=== PATIENT | female | born 1950 | race Caucasian/White ===

== ENCOUNTER 2017-11-04 07:30 | Day surgery (SDC) | payer MEDICARE, OTHER ==
[~2017-11-04] VITALS: Ht 165.1 cm; Wt 57.2 kg
[~2017-11-04 07:30] MED LIST: Atenolol-Chlor1 EAC1; EXEM25; MIRT15ST; Macrodantin50 MG; SHINGRIX V50 MCG/0.5; TRAM50
[2017-11-04] MEDS ORDERED: NITR100 PO (08:19)
== END 2017-11-04 09:30 | disposition home or self-care (01) ==
LOC: ORSCSDS 07:30
PROVIDERS: Ophthalmology
PROC: 08RK3JZ Replacement of Left Lens with Synthetic Substitute, Percutaneous Approach (ICD-10-PCS; principal; 2017-11-04 09:30)
DX: H25.12 Age-related nuclear cataract, left eye (principal); I10 Essential (primary) hypertension; Z79.899 Other long term (current) drug therapy; Z87.891 Personal history of nicotine dependence
CPT/HCPCS: J2250; J3010; J3301; J7040; V2632

== ENCOUNTER 2017-12-16 06:14 | Day surgery (SDC) | payer MEDICARE, OTHER ==
[~2017-12-16] VITALS: Ht 165.1 cm; Wt 57.0 kg
[~2017-12-16 06:14] MED LIST changes: +NITR100 PO
== END 2017-12-16 07:53 | disposition home or self-care (01) ==
LOC: ORSCSDS 06:14
PROVIDERS: Ophthalmology
PROC: 08RJ3JZ Replacement of Right Lens with Synthetic Substitute, Percutaneous Approach (ICD-10-PCS; principal; 2017-12-16 07:30)
DX: H25.11 Age-related nuclear cataract, right eye (principal); I10 Essential (primary) hypertension; I25.10 Atherosclerotic heart disease of native coronary artery without angina pectoris; Z87.891 Personal history of nicotine dependence; Z79.899 Other long term (current) drug therapy
CPT/HCPCS: J2250; J3010; J3301; J7040; V2632

== ENCOUNTER → 2017-12-17 | Outpatient (CLI) | payer MEDICARE, OTHER | END | disposition home or self-care (01) | LOC: LAB SHORT 13:41 → LAB 13:41 | DX: N39.0 Urinary tract infection, site not specified (principal) | CPT/HCPCS: 87086 ==

== ENCOUNTER 2018-09-24 08:33 | Day surgery (SDC) | payer MEDICARE, OTHER ==
[~2018-09-24] VITALS: Ht 165.1 cm; Wt 56.5 kg
[~2018-09-24 08:33] MED LIST changes: +ATECHL PO; +EXEM25 PO; +MIRT15 PO; +TRAM50 PO
--- NOTE | 2018-09-24 10:17 | NUR ---
09/24/18 1017 Stephen Chery IV IN LEFT HAND NOTED TO BE INFILTRATED. NEW IV ESTABLISHED IN LEFT AC WITHOUT DIFFICULTY.
== END 2018-09-24 11:54 | disposition home or self-care (01) ==
LOC: ORSCSDS 08:33
PROVIDERS: Podiatrist Foot & Ankle Surgery
PROC: 0SGM04Z Fusion of Right Metatarsal-Phalangeal Joint with Internal Fixation Device, Open Approach (ICD-10-PCS; principal; 2018-09-24 09:45)
DX: M20.11 Hallux valgus (acquired), right foot (principal); M20.5X1 Other deformities of toe(s) (acquired), right foot; I10 Essential (primary) hypertension; F17.210 Nicotine dependence, cigarettes, uncomplicated; Z79.899 Other long term (current) drug therapy
CPT/HCPCS: C1713; C1769; J0690; J1100; J2250; J2405; J3010; J7120

== ENCOUNTER → 2018-10-19 | Outpatient (CLI) | payer MEDICARE, OTHER | END | disposition home or self-care (01) | LOC: LAB 13:20 → LAB SHORT 13:20 | DX: N39.0 Urinary tract infection, site not specified (principal) | CPT/HCPCS: 87086 ==

== ENCOUNTER 2019-01-07 11:54 | Day surgery (SDC) | payer MEDICARE, OTHER ==
[~2019-01-07] VITALS: Ht 162.6 cm; Wt 55.6 kg
[2019-01-07] MEDS ORDERED: NITR100CA (13:34)
== END 2019-01-07 17:40 | disposition home or self-care (01) ==
LOC: ORSCSDS 11:54
PROVIDERS: Orthopaedic Surgery
PROC: 0PS904Z Reposition Right Clavicle with Internal Fixation Device, Open Approach (ICD-10-PCS; principal; 2019-01-07 13:00)
DX: S42.021K Displaced fracture of shaft of right clavicle, subsequent encounter for fracture with nonunion (principal); I10 Essential (primary) hypertension; Z87.891 Personal history of nicotine dependence; Z79.899 Other long term (current) drug therapy
CPT/HCPCS: C1713; J0690; J1100; J2250; J2405; J2704; J3010

== ENCOUNTER → 2019-03-16 | Outpatient (CLI) | payer MEDICARE, OTHER ==
[~2019-03-16] MED LIST changes: +NITR100CA
== END | disposition home or self-care (01) ==
LOC: LAB 11:50 → LAB SHORT 11:50
DX: R30.0 Dysuria (principal)
CPT/HCPCS: 87086

== ENCOUNTER → 2019-04-20 | Outpatient (CLI) | payer MEDICARE, OTHER ==
[2019-04-20 20:11] LABS: BASOPHILS ABSOLUTE AUTO 0.01 K/mm3 (0.00-0.23); BASOPHILS PERCENT AUTO 0 % (0-2); EOSINOPHILS ABSOLUTE AUTO 0.05 K/mm3 (0.00-0.68); EOSINOPHILS PERCENT AUTO 1 % (0-6); Hematocrit 42.1 % (33.0-51.0); Hemoglobin 13.6 g/dL (11.5-16.0); IMMATURE GRAN ABSOLUTE AUTO 0.01 K/mm3 (0.00-0.10); IMMATURE GRAN PERCENT AUTO 0 % (0-1); LYMPHOCYTES ABSOLUTE AUTO 1.17 K/mm3 (0.84-5.20); LYMPHOCYTES PERCENT AUTO 33 % (21-46); MONOCYTES ABSOLUTE AUTO 0.57 K/mm3 (0.16-1.47); MONOCYTES PERCENT AUTO 16 % (4-13); Mean Corpuscular HGB 33.3 pg (26.0-34.0); Mean Corpuscular HGB Conc 32.3 g/dL (31.5-36.5); Mean Corpuscular Volume 103 fL (80-100); Mean Platelet Volume 11.2 fL (9.1-12.4); NEUTROPHILS ABSOLUTE AUTO 1.78 K/mm3 (1.96-9.15); NEUTROPHILS PERCENT AUTO 50 % (41-73); Platelet Count 231 K/mm3 (150-400); RDW Coefficient Variation 14.3 % (11.7-14.2); RDW Standard Deviation 54.7 fL (35.1-46.3); Red Blood Cell Count 4.09 M/mm3 (3.80-5.20); White Blood Cell Count 3.59 K/mm3 (4.00-11.30)
[2019-04-20 20:28] LABS: Albumin, Blood 4.3 g/dL (3.4-5.0); Albumin/Globulin Ratio 1.2 (0.8-1.8); Bilirubin, Total 0.8 mg/dL (0.1-1.0); Calcium, Blood 10.3 mg/dL (8.5-10.1); Creatinine, Blood 1.12 mg/dL (0.40-1.00); Globulin, Blood 3.6 g/dL (2.2-4.0); Potassium, Blood 3.1 mmol/L (3.5-5.5); Total Protein, Blood 7.9 g/dL (6.4-8.2)
== END | disposition home or self-care (01) ==
LOC: LAB SHORT 19:21 → LAB 19:21
PROVIDERS: Hospitalist
DX: R10.11 Right upper quadrant pain (principal); R30.0 Dysuria
CPT/HCPCS: 80053; 85025

== ENCOUNTER → 2019-05-10 | Outpatient (CLI) | payer MEDICARE, OTHER ==
[2019-05-10 16:46] LABS: Calcium, Blood 9.2 mg/dL (8.5-10.1); Creatinine, Blood 1.08 mg/dL (0.40-1.00); Potassium, Blood 4.1 mmol/L (3.5-5.5)
== END | disposition home or self-care (01) ==
LOC: LAB 14:53 → LAB SHORT 14:53
PROVIDERS: Hospitalist
DX: R10.11 Right upper quadrant pain (principal); R19.7 Diarrhea, unspecified
CPT/HCPCS: 80048

== ENCOUNTER → 2020-01-17 | Outpatient (CLI) | payer MEDICARE, OTHER | END | disposition home or self-care (01) | LOC: LAB SHORT 12:07 → PLD 12:07 | DX: C44.712 Basal cell carcinoma of skin of right lower limb, including hip (principal); L57.8 Other skin changes due to chronic exposure to nonionizing radiation | CPT/HCPCS: 88305 ==

== ENCOUNTER → 2020-03-22 | Outpatient (CLI) | payer MEDICARE, OTHER | END | disposition home or self-care (01) | LOC: LAB 09:23 → LAB SHORT 09:23 | DX: C50.811 Malignant neoplasm of overlapping sites of right female breast (principal) | CPT/HCPCS: 88341; 88342; 88360; 88381 ==

== ENCOUNTER → 2020-04-12 | Outpatient (CLI) | payer MEDICARE, OTHER | END | disposition home or self-care (01) | LOC: LAB 10:10 → LAB SHORT 10:10 | DX: L08.0 Pyoderma (principal) | CPT/HCPCS: 87070; 87205 ==

== ENCOUNTER 2020-04-26 14:34 | Emergency (ER) | payer MEDICARE, OTHER ==
[~2020-04-26] VITALS: Ht 162.6 cm; Wt 62.1 kg
[2020-04-26 15:07] LABS: BASOPHILS ABSOLUTE AUTO 0.01 K/mm3 (0.00-0.23); BASOPHILS PERCENT AUTO 0 % (0-2); EOSINOPHILS PERCENT AUTO 0 % (0-6); Hematocrit 38.9 % (33.0-51.0); Hemoglobin 12.8 g/dL (11.5-16.0); Mean Corpuscular HGB 32.2 pg (26.0-34.0); Mean Corpuscular HGB Conc 32.9 g/dL (31.5-36.5); Mean Corpuscular Volume 98 fL (80-100); Mean Platelet Volume 11.2 fL (9.1-12.4); Platelet Count 185 K/mm3 (150-400); RDW Coefficient Variation 15.2 % (11.7-14.2); RDW Standard Deviation 55.2 fL (35.1-46.3); Red Blood Cell Count 3.98 M/mm3 (3.80-5.20); White Blood Cell Count 6.02 K/mm3 (4.00-11.30)
[2020-04-26 15:08] LABS: IMMATURE GRAN ABSOLUTE AUTO 0.05 K/mm3 (0.00-0.10); IMMATURE GRAN PERCENT AUTO 1 % (0-1); LYMPHOCYTES ABSOLUTE AUTO 0.26 K/mm3 (0.84-5.20); LYMPHOCYTES PERCENT AUTO 4 % (21-46); MONOCYTES PERCENT AUTO 2 % (4-13); NEUTROPHILS PERCENT AUTO 93 % (41-73)
[2020-04-26 15:50] LABS: Albumin, Blood 3.7 g/dL (3.4-5.0); Bilirubin, Total 0.9 mg/dL (0.1-1.0); Bun/Creatinine Ratio 12.1 (12.0-20.0); Calcium, Blood 9.4 mg/dL (8.5-10.1); Creatinine, Blood 1.32 mg/dL (0.40-1.00); Globulin, Blood 3.6 g/dL (2.2-4.0); Potassium, Blood 4.1 mmol/L (3.5-5.5); Total Protein, Blood 7.3 g/dL (6.4-8.2)
[2020-04-26 15:54] LABS: BAND PERCENT MAN 6 % (0-8); BASOPHILS PERCENT MAN 0 % (0-2); EOSINOPHILS PERCENT MAN 0 % (0-6); LYMPHOCYTES ABSOLUTE MAN 0.24 K/mm3 (0.84-5.20); LYMPHOCYTES PERCENT MAN 4 % (21-46); MONOCYTES ABSOLUTE MAN 0.12 K/mm3 (0.16-1.47); MONOCYTES PERCENT MAN 2 % (4-13); NEUTROPHILS ABSOLUTE MAN 5.65 K/mm3 (1.96-9.15); SEG NEUTROPHILS PERCENT MAN 88 % (41-73); TOTAL CELLS COUNTED 100
[2020-04-26 16:44] LABS: Source, Urine Clean Catch
[2020-04-26 16:47] LABS: Appearance, Urine Clear (Clear); Bilirubin, Urine Neg (Neg); Blood, Urine Neg (Neg); Color, Urine Yellow (P-Yellow); Glucose Qualitative, Urine Neg (Neg); Ketones, Urine Neg (Neg); Leukocyte Esterase, Urine Neg (Neg); Nitrite, Urine Neg (Neg); Protein, Urine Neg (Neg); Specific Gravity, Urine 1.005 (1.003-1.022); Urobilinogen, Urine NORM (Normal)
[2020-04-26 17:30] LABS: Adenovirus Not Detected (NOT DETECT); Bordetella pertussis Not Detected (NOT DETECT); Chlamydophila pneumoniae Not Detected (NOT DETECT); Coronavirus 229E Not Detected (NOT DETECT); Coronavirus HKU1 Not Detected (NOT DETECT); Coronavirus NL63 Not Detected (NOT DETECT); Coronavirus OC43 Not Detected (NOT DETECT); Human Metapneumovirus Not Detected (NOT DETECT); Human Rhinovirus/Enterovirus Not Detected (NOT DETECT); Influenza A/2009-H1 Not Detected (NOT DETECT); Influenza A/H1 Not Detected (NOT DETECT); Influenza A/H3 Not Detected (NOT DETECT); Influenza B Not Detected (NOT DETECT); Mycoplasma pneumoniae Not Detected (NOT DETECT); Parainfluenza Virus 1 Not Detected (NOT DETECT); Parainfluenza Virus 2 Not Detected (NOT DETECT); Parainfluenza Virus 3 Not Detected (NOT DETECT); Parainfluenza Virus 4 Not Detected (NOT DETECT); Respiratory Syncytial Virus Not Detected (NOT DETECT); SARS-Cov-2 (COVID-19), BioFire Not Detected (NOT DETECT)
== END 2020-04-26 17:52 | disposition home or self-care (01) ==
LOC: ER 14:34
PROVIDERS: Emergency Medicine
DX: R50.9 Fever, unspecified (principal); I10 Essential (primary) hypertension; Z20.2 Contact with and (suspected) exposure to infections with a predominantly sexual mode of transmission; Z88.2 Allergy status to sulfonamides
CPT/HCPCS: 0202U; 36415; 71046; 74177; 80053; 81003; 83605; 85025; 87040; 93005; 93010; 99285-25; A9270; J7030; Q9967

== ENCOUNTER → 2021-09-13 | Outpatient (CLI) | payer MEDICARE, OTHER ==
[2021-09-13 12:56] LABS: Adenovirus F 40/41 Not Detected (NOT DETECT); Astrovirus Not Detected (NOT DETECT); Campylobacter Sp Not Detected (NOT DETECT); Cryptosporidium Not Detected (NOT DETECT); Cyclospora Cayetanensis Not Detected (NOT DETECT); E. Coli O157 Not Detected (NOT DETECT); Entamoeba Histolytica Not Detected (NOT DETECT); Enteroaggregative E. coli-EAEC Not Detected (NOT DETECT); Enteropathogenic E. coli-EPEC Not Detected (NOT DETECT); Enterotoxigenic E. coli-ETEC Not Detected (NOT DETECT); Giardia Lamblia Not Detected (NOT DETECT); Norovirus GI/GII Not Detected (NOT DETECT); Plesiomonas Shigelloides Not Detected (NOT DETECT); Rotavirus A Not Detected (NOT DETECT); Salmonella Sp Not Detected (NOT DETECT); Sapovirus Not Detected (NOT DETECT); Shiga Toxin-prod E. coli-STEC Not Detected (NOT DETECT); Shigella/Enteroin E. coli-EIEC Not Detected (NOT DETECT); Vibrio Cholerae Not Detected (NOT DETECT); Vibrio Sp Not Detected (NOT DETECT); Yersinia Enterocolitica Not Detected (NOT DETECT)
== END ==
LOC: LAB SHORT 10:17
PROVIDERS: Hospitalist
DX: R19.7 Diarrhea, unspecified (principal)
CPT/HCPCS: 0097U; 87324

== ENCOUNTER → 2021-12-11 | Outpatient (CLI) | payer MEDICARE, OTHER ==
[~2021-12-11] MED LIST changes: +AMLO5 PO; +FAMO20 PO; +FASLODEX250 MG/5 M IM; +FURO40; +KLOR-CON 1010 ME1 PO; +LOSA50 PO; -NITR100CA; +NITR100CA PO; +ONDA4 PO; +OXYC10TA19 PO; +PROM25 PO; +VERZENIO; +XGEVA120 MG/1.1 SC
[2021-12-11 14:42] LABS: BASOPHILS ABSOLUTE AUTO 0.01 K/mm3 (0.00-0.23); BASOPHILS PERCENT AUTO 1 % (0-2); EOSINOPHILS ABSOLUTE AUTO 0.05 K/mm3 (0.00-0.68); EOSINOPHILS PERCENT AUTO 2 % (0-6); Hematocrit 34.7 % (33.0-51.0); Hemoglobin 11.1 g/dL (11.5-16.0); IMMATURE GRAN ABSOLUTE AUTO 0.02 K/mm3 (0.00-0.10); IMMATURE GRAN PERCENT AUTO 1 % (0-1); LYMPHOCYTES ABSOLUTE AUTO 0.26 K/mm3 (0.84-5.20); LYMPHOCYTES PERCENT AUTO 13 % (21-46); MONOCYTES ABSOLUTE AUTO 0.28 K/mm3 (0.16-1.47); MONOCYTES PERCENT AUTO 14 % (4-13); Mean Corpuscular HGB 30.2 pg (26.0-34.0); Mean Corpuscular Volume 94 fL (80-100); Mean Platelet Volume 9.5 fL (9.1-12.4); NEUTROPHILS ABSOLUTE AUTO 1.43 K/mm3 (1.96-9.15); NEUTROPHILS PERCENT AUTO 70 % (41-73); Platelet Count 126 K/mm3 (150-400); RDW Coefficient Variation 20.8 % (11.7-14.2); RDW Standard Deviation 71.2 fL (35.1-46.3); Red Blood Cell Count 3.68 M/mm3 (3.80-5.20); White Blood Cell Count 2.05 K/mm3 (4.00-11.30)
[2021-12-11 15:02] LABS: Percent Saturation 14.3 % (15.0-50.0)
[2021-12-11 16:04] LABS: Albumin, Blood 3.2 g/dL (3.4-5.0); Bilirubin, Total 0.4 mg/dL (0.1-1.0); Bun/Creatinine Ratio 13.9 (12.0-20.0); Calcium, Blood 8.7 mg/dL (8.5-10.1); Creatinine, Blood 1.15 mg/dL (0.40-1.00); Globulin, Blood 3.3 g/dL (2.2-4.0); Magnesium, Blood 1.1 mg/dL (1.6-2.4); Potassium, Blood 4.1 mmol/L (3.5-5.5); Total Protein, Blood 6.5 g/dL (6.4-8.2)
== END | disposition home or self-care (01) ==
LOC: LAB SHORT 10:20
PROVIDERS: Hospitalist
DX: R10.13 Epigastric pain (principal); C50.919 Malignant neoplasm of unspecified site of unspecified female breast; E53.8 Deficiency of other specified B group vitamins; E55.9 Vitamin D deficiency, unspecified
CPT/HCPCS: 80053; 82150; 82306; 82607; 82728; 82746; 83540; 83550; 83690; 83735; 85025

== ENCOUNTER → 2022-02-03 | Outpatient (CLI) | payer MEDICARE, OTHER ==
[2022-02-03 15:06] LABS: BASOPHILS ABSOLUTE AUTO 0.02 K/mm3 (0.00-0.23); BASOPHILS PERCENT AUTO 1 % (0-2); EOSINOPHILS ABSOLUTE AUTO 0.09 K/mm3 (0.00-0.68); EOSINOPHILS PERCENT AUTO 3 % (0-6); Hemoglobin 11.3 g/dL (11.5-16.0); IMMATURE GRAN ABSOLUTE AUTO 0.01 K/mm3 (0.00-0.10); IMMATURE GRAN PERCENT AUTO 0 % (0-1); LYMPHOCYTES ABSOLUTE AUTO 0.56 K/mm3 (0.84-5.20); LYMPHOCYTES PERCENT AUTO 17 % (21-46); MONOCYTES ABSOLUTE AUTO 0.59 K/mm3 (0.16-1.47); MONOCYTES PERCENT AUTO 18 % (4-13); Mean Corpuscular HGB 30.9 pg (26.0-34.0); Mean Corpuscular HGB Conc 33.2 g/dL (31.5-36.5); Mean Corpuscular Volume 93 fL (80-100); Mean Platelet Volume 9.1 fL (9.1-12.4); NEUTROPHILS ABSOLUTE AUTO 2.02 K/mm3 (1.96-9.15); NEUTROPHILS PERCENT AUTO 62 % (41-73); Platelet Count 201 K/mm3 (150-400); RDW Standard Deviation 58.1 fL (35.1-46.3); Red Blood Cell Count 3.66 M/mm3 (3.80-5.20); White Blood Cell Count 3.29 K/mm3 (4.00-11.30)
[2022-02-03 19:37] LABS: Albumin, Blood 3.5 g/dL (3.4-5.0); Albumin/Globulin Ratio 1.2 (0.8-1.8); Bilirubin, Total 0.4 mg/dL (0.1-1.0); Bun/Creatinine Ratio 26.9 (12.0-20.0); Calcium, Blood 10.2 mg/dL (8.5-10.1); Creatinine, Blood 1.04 mg/dL (0.40-1.00); Total Protein, Blood 6.5 g/dL (6.4-8.2)
== END | disposition home or self-care (01) ==
LOC: LAB SHORT 13:26 → LAB 13:26
PROVIDERS: Hospitalist
DX: E87.1 Hypo-osmolality and hyponatremia (principal); E53.8 Deficiency of other specified B group vitamins; E61.1 Iron deficiency; E55.9 Vitamin D deficiency, unspecified; R79.89 Other specified abnormal findings of blood chemistry; R74.01 Elevation of levels of liver transaminase levels
CPT/HCPCS: 80053; 82306; 82607; 82728; 83540; 83550; 85025; 86803

== ENCOUNTER → 2022-05-28 | Outpatient (CLI) | payer MEDICARE, OTHER | LOC: LAB SHORT 11:00 → LAB 11:00 | DX: R30.0 Dysuria (principal) | CPT/HCPCS: 87086 ==

== ENCOUNTER → 2022-07-28 | Outpatient (CLI) | payer MEDICARE, OTHER | LOC: LAB 11:30 → LAB SHORT 11:30 → PLD 11:30 | DX: D48.5 Neoplasm of uncertain behavior of skin (principal) | CPT/HCPCS: 88305 ==

== ENCOUNTER 2022-08-18 04:45 | Inpatient (IN) | payer MEDICARE, OTHER ==
[~2022-08-18] VITALS: Ht 157.5 cm; Wt 61.0 kg
[~2022-08-18 04:45] MED LIST changes: -FURO40; +FURO40 PO
[2022-08-18 05:28] LABS: BASOPHILS ABSOLUTE AUTO 0.09 K/mm3 (0.00-0.23); BASOPHILS PERCENT AUTO 1 % (0-2); EOSINOPHILS ABSOLUTE AUTO 0.21 K/mm3 (0.00-0.68); EOSINOPHILS PERCENT AUTO 1 % (0-6); Hematocrit 39.9 % (33.0-51.0); Hemoglobin 13.1 g/dL (11.5-16.0); IMMATURE GRAN ABSOLUTE AUTO 0.17 K/mm3 (0.00-0.10); IMMATURE GRAN PERCENT AUTO 1 % (0-1); LYMPHOCYTES ABSOLUTE AUTO 0.58 K/mm3 (0.84-5.20); LYMPHOCYTES PERCENT AUTO 4 % (21-46); MONOCYTES ABSOLUTE AUTO 2.01 K/mm3 (0.16-1.47); MONOCYTES PERCENT AUTO 12 % (4-13); Mean Corpuscular HGB 27.9 pg (26.0-34.0); Mean Corpuscular HGB Conc 32.8 g/dL (31.5-36.5); Mean Corpuscular Volume 85 fL (80-100); Mean Platelet Volume 9.9 fL (9.1-12.4); NEUTROPHILS ABSOLUTE AUTO 13.16 K/mm3 (1.96-9.15); NEUTROPHILS PERCENT AUTO 81 % (41-73); Platelet Count 176 K/mm3 (150-400); RDW Standard Deviation 55.7 fL (35.1-46.3); Red Blood Cell Count 4.69 M/mm3 (3.80-5.20); White Blood Cell Count 16.22 K/mm3 (4.00-11.30)
[2022-08-18 05:44] LABS: Source, Urine Straight Cath
[2022-08-18 05:49] LABS: Albumin, Blood 3.6 g/dL (3.4-5.0); Albumin/Globulin Ratio 1.1 (0.8-1.8); Bilirubin, Total 0.7 mg/dL (0.1-1.0); Bun/Creatinine Ratio 22.8 (12.0-20.0); Creatinine, Blood 2.5 mg/dL (0.40-1.00); Globulin, Blood 3.2 g/dL (2.2-4.0); Potassium, Blood 4.3 mmol/L (3.5-5.5); Total Protein, Blood 6.8 g/dL (6.4-8.2)
[2022-08-18 06:06] LABS: Appearance, Urine Clear (Clear); Bilirubin, Urine Neg (Neg); Blood, Urine 2+ (Neg); Color, Urine Yellow (P-Yellow); Glucose Qualitative, Urine 4+ (Neg); Ketones, Urine Neg (Neg); Leukocyte Esterase, Urine Neg (Neg); Nitrite, Urine Neg (Neg); Protein, Urine 1+ (Neg); Urobilinogen, Urine NORM (Normal)
[2022-08-18] MEDS ORDERED: ONDA4ODT MM (06:31)
[2022-08-18] MEDS ORDERED: IRON18 MG PO (06:31)
[2022-08-18] MEDS ORDERED: OLAN2.5 PO (06:32)
[2022-08-18] MEDS ORDERED: TIZA4 PO (06:33)
[2022-08-18] MEDS ORDERED: [UNRECOGNIZED DRUG - OTHER] PO (06:34)
[2022-08-18] MEDS ORDERED: VITAMIN D3-ALO1 EACH PO (06:35)
[2022-08-18] MEDS ORDERED: CRANBERRY500 M1 PO (06:36)
[2022-08-18 07:06] LABS: Amorphous Light (0-Heavy); Bacteria Few /hpf; Squamous Epithelial Cells Few /hpf (Few); White Blood Cells, Urine 0-2 /hpf (0-5)
[2022-08-18 09:23] LABS: Percent Saturation 20.2 % (15.0-50.0)
--- NOTE | 2022-08-18 19:13 | NUR ---
SHIFT SUMMARY PT A&OX4 AND PLEASANT. PT C/O CHRONIC PAIN IN LEFT HIP. MEDICATED PER EMAR WITH GOOD EFFECT. PT VERY WEAK. CURRENTLY USING BEDPAN. CALLS APPROPRIATLY. AT BEDSIDE DURING AFTERNOON. VSS. CALLS APPROPRIATLY. BED IN LOWEST POSITION AND CALL LIGHT IN REACH.
--- NOTE | 2022-08-19 04:10 | NUR ---
SHIFT SUMMARY NO OVERNIGHT EVENTS. PT ORIENTED X4, ABLE TO MAKE NEEDS KNOWN. PT REQUESTING TO USE BEDPAN D/T FEELING WEAK, SET UP PUREWICK AND BEDPAN FOR BM. CONTINUES IV FLUIDS/ABX. PT REPORTING CHRONIC L HIP PAIN, MEDICATED WITH OXYCODONE. BP SOFT, BUT STABLE. BG 140'S. DENIES ANY SOB/CP OR ANY OTHER S/S OF DISTRESS. CALL LIGHT IN REACH.
[2022-08-19 06:03] LABS: BASOPHILS ABSOLUTE AUTO 0.05 K/mm3 (0.00-0.23); BASOPHILS PERCENT AUTO 0 % (0-2); EOSINOPHILS ABSOLUTE AUTO 0.37 K/mm3 (0.00-0.68); EOSINOPHILS PERCENT AUTO 3 % (0-6); Hematocrit 42.5 % (33.0-51.0); Hemoglobin 13.7 g/dL (11.5-16.0); IMMATURE GRAN ABSOLUTE AUTO 0.09 K/mm3 (0.00-0.10); IMMATURE GRAN PERCENT AUTO 1 % (0-1); LYMPHOCYTES ABSOLUTE AUTO 1.69 K/mm3 (0.84-5.20); LYMPHOCYTES PERCENT AUTO 14 % (21-46); MONOCYTES ABSOLUTE AUTO 0.88 K/mm3 (0.16-1.47); MONOCYTES PERCENT AUTO 7 % (4-13); Mean Corpuscular HGB 27.7 pg (26.0-34.0); Mean Corpuscular HGB Conc 32.2 g/dL (31.5-36.5); Mean Corpuscular Volume 86 fL (80-100); NEUTROPHILS ABSOLUTE AUTO 9.32 K/mm3 (1.96-9.15); NEUTROPHILS PERCENT AUTO 75 % (41-73); Platelet Count 186 K/mm3 (150-400); RDW Coefficient Variation 18.8 % (11.7-14.2); RDW Standard Deviation 57.6 fL (35.1-46.3); Red Blood Cell Count 4.94 M/mm3 (3.80-5.20)
[2022-08-19 06:21] LABS: Albumin/Globulin Ratio 0.8 (0.8-1.8); Bilirubin, Total 0.5 mg/dL (0.1-1.0); Bun/Creatinine Ratio 21.7 (12.0-20.0); Calcium, Blood 9.2 mg/dL (8.5-10.1); Creatinine, Blood 1.57 mg/dL (0.40-1.00); Globulin, Blood 3.8 g/dL (2.2-4.0); Magnesium, Blood 1.5 mg/dL (1.6-2.4); Phosphorus, Blood 3.5 mg/dL (2.5-4.9); Total Protein, Blood 6.8 g/dL (6.4-8.2)
--- NOTE | 2022-08-19 17:21 | NUR ---
SHIFT SUMMARY: PATIENT A&OX4. CALM, PLEASANT AND COOPERATIVE c CARE. USES CALL LIGHT APPROPRIATELY AND ABLE TO ADVOCATE FOR HER NEEDS. DENIES CP/PRESSURE. LUNGS CLEAR T/O TO AUSCULTATION. PATIENT BS THIS AM WAS LOW RANGES IN HIGH 30'S TO HIGH 40'S. GIVEN AJ, SNACKS AND BREAKFAST. BS WENT UP TO HIGH 90'S. AT AROUND 1647, PATIENT BS DROPPED TO HIGH 40'S. CALLED DR. VILLA. RECEIVED ORDER TO GIVE D50, INFUSE D5-1/2 NS AT 50 MLS/HR AND TO PERFORM ACCU CHECK Q2 HRS UNTIL STABLE. BS WAS RECHECK AT AROUND 1722 AND WENT UP TO 79. PATIENT REPORTS PAIN TO L HIP AND BACK T/O SHIFT. RECEIVED X2 OF OXYCODONE FOR PAIN THIS SHIFT. PATIENT ALSO REPORTS OF BEING NAUSEOUS BUT NO VOMITING. MEDICATED X1 c ZOFRAN. REPORTS OF HAVING ADEQUATE RELIEF. IV TO L FOOT INFUSING D5-1/2 NS AT 50 MLS/HR. VITAL SIGNS REVIEWED. PATIENT HAS BEEN USING BSC c 1 ASSIST T/O SHIFT. CALL LIGHT IN REACH.
--- NOTE | 2022-08-20 04:31 | NUR ---
SHIFT SUMMARY BG RANGING FROM 65-115. 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 MD INCREASED D51/2NS TO 75ML/HR AND X1 DOSE OF D50. BG HAVE HELD SINCE. PT HAVING A COUPLE SMALL LOOSE STOOLS, STOOL SAMPLE SENT. PT REPORTING CHRONIC PAIN, SEE MAR FOR OXYCODONE ADMIN. PT UP INDEPENDENTLY TO BSC. PT ORIENTED X4, ABLE TO MAKE NEEDS KNOWN. CALL LIGHT IN REACH.
[2022-08-20 05:41] LABS: BASOPHILS ABSOLUTE AUTO 0.04 K/mm3 (0.00-0.23); BASOPHILS PERCENT AUTO 1 % (0-2); EOSINOPHILS ABSOLUTE AUTO 0.48 K/mm3 (0.00-0.68); EOSINOPHILS PERCENT AUTO 6 % (0-6); Hematocrit 35.8 % (33.0-51.0); Hemoglobin 11.6 g/dL (11.5-16.0); IMMATURE GRAN ABSOLUTE AUTO 0.12 K/mm3 (0.00-0.10); IMMATURE GRAN PERCENT AUTO 2 % (0-1); LYMPHOCYTES PERCENT AUTO 12 % (21-46); MONOCYTES ABSOLUTE AUTO 1.14 K/mm3 (0.16-1.47); MONOCYTES PERCENT AUTO 14 % (4-13); Mean Corpuscular HGB Conc 32.4 g/dL (31.5-36.5); Mean Corpuscular Volume 86 fL (80-100); Mean Platelet Volume 10.7 fL (9.1-12.4); NEUTROPHILS ABSOLUTE AUTO 5.46 K/mm3 (1.96-9.15); NEUTROPHILS PERCENT AUTO 66 % (41-73); Platelet Count 202 K/mm3 (150-400); RDW Coefficient Variation 18.3 % (11.7-14.2); RDW Standard Deviation 57.6 fL (35.1-46.3); Red Blood Cell Count 4.15 M/mm3 (3.80-5.20); White Blood Cell Count 8.24 K/mm3 (4.00-11.30)
[2022-08-20 06:13] LABS: Bun/Creatinine Ratio 17.8 (12.0-20.0); Calcium, Blood 8.6 mg/dL (8.5-10.1); Creatinine, Blood 1.18 mg/dL (0.40-1.00); Potassium, Blood 3.8 mmol/L (3.5-5.5)
[2022-08-20 06:48] LABS: Adenovirus F 40/41 Not Detected (NOT DETECT); Astrovirus Not Detected (NOT DETECT); Campylobacter Sp Not Detected (NOT DETECT); Cryptosporidium Not Detected (NOT DETECT); Cyclospora Cayetanensis Not Detected (NOT DETECT); E. Coli O157 Not Detected (NOT DETECT); Entamoeba Histolytica Not Detected (NOT DETECT); Enteroaggregative E. coli-EAEC Not Detected (NOT DETECT); Enteropathogenic E. coli-EPEC Not Detected (NOT DETECT); Enterotoxigenic E. coli-ETEC Not Detected (NOT DETECT); Giardia Lamblia Not Detected (NOT DETECT); Norovirus GI/GII Not Detected (NOT DETECT); Plesiomonas Shigelloides Not Detected (NOT DETECT); Rotavirus A Not Detected (NOT DETECT); Salmonella Sp Not Detected (NOT DETECT); Sapovirus Not Detected (NOT DETECT); Shiga Toxin-prod E. coli-STEC Not Detected (NOT DETECT); Shigella/Enteroin E. coli-EIEC Not Detected (NOT DETECT); Vibrio Cholerae Not Detected (NOT DETECT); Vibrio Sp Not Detected (NOT DETECT); Yersinia Enterocolitica Not Detected (NOT DETECT)
--- NOTE | 2022-08-20 11:33 | NUR ---
CALLED DR. VILLA REGARDING PATIENT BS DOWN TO 48. RECEIVED ORDER TO GIVE D50 NOW AND CONTINUE TO MONITOR PATIENT BS.
--- NOTE | 2022-08-20 19:17 | NUR ---
SHIFT SUMMARY: PATIENT A&OX4. CALM, PLEASANT AND COOPERATIVE c CARE. USES CALL LIGHT APPROPRIATELY AND ABLE TO MAKE NEEDS KNOWN. PATIENT BS HAS BEEN AND ONGOING ISSUE T/O THIS SHIFT. BS KEEP FLUCTUATING RANGES FROM 48-107. Q2 ACCU CHECK. PATIENT HAS CONTINUES D5-1/2 NS 75 MLS/HR AND IT'S NOT EVEN HELPING MANAGE c PATIENT HYPOGLYCEMIC THIS SHIFT. PATIENT RECEIVED D50 THIS AM, AJ AND SNACKS T/O SHIFT. PATIENT RECEIVED SCHEDULED IV ABX. PATIENT REPORTS PAIN TO BACK AND HIP. RECEIVED X3 DOSES OF OXYCODE T/O THIS SHIFT. REPORTS HAVING GOOD RELIEF. PATIENT REPORTS OF HAVING NAUSEA BUT NO VOMITING. RECEIVED 2 DOSES OF ZOFRAN THIS SHIFT. PATIENT HAD 3 LIQUID STOOL. PATIENT USES BSC INDEPENDENTLY. IV TO L FOOT SALINE LOCKED. POWERGLIDE TO CAROL INFUSING D5-1/2 NS AT 75 MLS/HR. VITAL SIGNS REVIEWED. CALL LIGHT IN REACH.
--- NOTE | 2022-08-20 21:37 | NUR ---
CBG 49 AT SHIFT CHANGE AND DAY NURSE GAVE APPLE JUICE AND UP TO 68. HOSPITALIST DR GUSTAFSON NOTIFIED AND ORDERED TRANSFER TO PCU, ONE AMP OF IV GLUGAGON, AND D10 1/2 NS @ 75 mL/HR. CBG 85 BEFORE IV GLUCAGON GIVEN.
--- NOTE | 2022-08-20 21:39 | NUR ---
PATIENT TRANSFER TO PCU 15. REPORT GIVEN. PATIENT TRANSFER WITH D10 1/2 NS INFUSING AT 75 mL/HR. PERSONAL BELONGINGS WITH PATIENT.
--- NOTE | 2022-08-20 22:04 | NUR ---
PT TX'D FROM 309 TO PCU 15 PT TOA 2114, PT SETTLED IN THE ROOM, BLOOD SUGAR OF 111, AND SHE HAS A D10 GTT RUNNING @ 75. PT ORIENTED TO THE ROOM, BED IN LOW, CALL LIGHT IN REACH.
--- NOTE | 2022-08-21 04:34 | NUR ---
SHIFT SUMMARY PT IS A TX FROM MEDICAL FLOOR THIS SHIFT. SHE HAS A D1O GTT RUNNING @ 75ML FOR A TOTAL OF 1.5L. PT HAS BEEN OBTAINING Q1 CBG'S, AND THEY HAVE RANGED FROM 89-126. HER FINGERS ARE VERY PALLOR, AND WE HAD TO START TAKING HER BLOOD SUGARS FROM HER TOES. PT CAME TO PCU VERY NAUSEATED AND REPORTED THAT SHE HAD A FEW EPISODES OF EMESIS BEFORE COMING DOWN TO PCU. SHE HAS NOT HAD ANY COMPLAINTS OF ANGINA OR SOB THIS SHIFT. SHE WAS MEDICATED ONCE PER EMAR FOR HER CHRONIC BACK PAIN. PT TX'S 1P TO THE BSC, SP02 >90% ON RA, AND HAS BEEN SR 60'S-70'S ON TELE, . BED IS IN LOW, AND CALL LIGHT IS IN REACH. WILL CONTINUE TO MONITOR UNTIL SHIFT REPORT IS GIVEN TO THE ONCOMING SHIFT RN. SEE NOTES FOR ANY UPDATES.
[2022-08-21 06:13] LABS: BASOPHILS ABSOLUTE AUTO 0.03 K/mm3 (0.00-0.23); BASOPHILS PERCENT AUTO 1 % (0-2); EOSINOPHILS ABSOLUTE AUTO 0.41 K/mm3 (0.00-0.68); EOSINOPHILS PERCENT AUTO 9 % (0-6); Hematocrit 37.4 % (33.0-51.0); Hemoglobin 12.1 g/dL (11.5-16.0); IMMATURE GRAN ABSOLUTE AUTO 0.13 K/mm3 (0.00-0.10); IMMATURE GRAN PERCENT AUTO 3 % (0-1); LYMPHOCYTES ABSOLUTE AUTO 0.76 K/mm3 (0.84-5.20); LYMPHOCYTES PERCENT AUTO 16 % (21-46); MONOCYTES ABSOLUTE AUTO 0.69 K/mm3 (0.16-1.47); MONOCYTES PERCENT AUTO 14 % (4-13); Mean Corpuscular HGB 27.9 pg (26.0-34.0); Mean Corpuscular HGB Conc 32.4 g/dL (31.5-36.5); Mean Corpuscular Volume 86 fL (80-100); Mean Platelet Volume 9.9 fL (9.1-12.4); NEUTROPHILS ABSOLUTE AUTO 2.79 K/mm3 (1.96-9.15); NEUTROPHILS PERCENT AUTO 58 % (41-73); Platelet Count 208 K/mm3 (150-400); RDW Coefficient Variation 18.2 % (11.7-14.2); RDW Standard Deviation 57.1 fL (35.1-46.3); Red Blood Cell Count 4.34 M/mm3 (3.80-5.20); White Blood Cell Count 4.81 K/mm3 (4.00-11.30)
[2022-08-21 06:40] LABS: Bun/Creatinine Ratio 11.8 (12.0-20.0); Calcium, Blood 8.4 mg/dL (8.5-10.1); Creatinine, Blood 1.1 mg/dL (0.40-1.00)
[2022-08-21 13:51] LABS: Free Thyroxine 1.25 ng/dL (0.70-1.60); Thyroid Stimulating Hormone 4.01 uIU/mL (0.360-4.800)
--- NOTE | 2022-08-21 18:08 | NUR ---
SHIFT SUMMARY PT HAS BEEN RESTING IN ROOM THROUGHOUT THE DAY. PT HAS BEEN UP TO THE BEDSIDE COMMODE INDEPENDENTLY. PT HAS C/O CHRONIC PAIN TO THE THE HIP AND BACK THAT HAS BEEN TREATED WITH MEDICATIONS PER MAR. BLOOD GLUCOSE HAS BEEN LABILE, PROVIDER IS AWARE AND ORDERS WERE GIVEN AND FOLLOWED. VITAL SIGNS HAVE REMAINED STABLE WITH NO ACUTE CHANGES IN CONDITION.
--- NOTE | 2022-08-22 06:39 | NUR ---
END OF SHIFT SUMMARY PT IN COSTANT PAIN FROM 4-9, ROUND THE CLOCK PO PAINMEDS, NAUSEA MEDS AND IMMODIUM, PT UP INDEPENDENTLY TO BSC, MULTIPLE SMALL, SOFT STOOLS BUT DEFINITELY IMPROVING, RA AND MAINTAINED O2 SATS, DYSPNEA ON EXERTION AND AUDIBLE WHEEZING, RT CAME TO BS TO EVALUATE BUT NO NEW INTERVENTIONS SHE WAS SATTING GOOD, VSS, AFEBRILE, D10 1/2 NS AT 100 INFUSING, FSBS <150 OVERNIGHT, BUT STABLE 79-105
--- NOTE | 2022-08-22 17:23 | NUR ---
PT ASKED TO MEET [facility] CATIA HUERTA RN IS AT THE BEDSIDE. PT PMH STAGE 4 BREAST CANCER WITH METS AND HAS BEEN DOING CHEMO THERAPY. PT REPORTS SHE IS TIRED AND NO LONGER WISHES TO CONTINUE WITH THERAPY. SHE REPORTS THAT SHE AND HER HAVE TALKED ABOUT POTENTIALLY STOPPING TREATMENT AND HOOSPICE, BUT HER CHILDREN ARE NOT AWARE. SHE HAS A FOLLOW UP APPT WITH DR RODRIGUEZ ON THURSDAY AND AT THAT TIME WILL TALK TO HIM ABOUT HER WISHES TO STOP TREATMENT AND HOSPICE. ADVISED THAT WE AN HELP WITH REFERRALS IF SHE WISHES, SHE WANTS TO TALK FURHTER WITH HER . PROVIDED EDUATION TO PT ABOUT HOSPICE SERVICES AND PHILOSOPHY. PROVIDED READING MATERIAL, PAMPHLETS AND CHOICE LETTER TO REVIEW IN MAKING HER DECISION. PT ALSO ASKS ABOUT WITH [facility], PROVIDED EDUATION ON THIS PROGRAM AND WILL GIVE ADDITIONAL INFORMTION ON MY NEXT VISIT ON THURSDAY. PT BECOMES TEARFUL AND REPORTS SHE HAS FOUGHT FOR OVER 20 YEARS, SHE IS TIRED AND READY TO JUST BE COMFORTABLE. PROVIDED EMOTIONAL SUPPORT AND REASSURED HER THAT WE ARE HERE TO SUPPORT AND HELP HER AND FAMILY IN ANY WAY WHILE SHE IS IN THE HOSPITAL AND AFTER SHE IS DISCHARGED. PROVIDED MY CARD WITH PALLIATIVE CARE CONTACT INFORMATION. PALLIATIVE CARE WILL CONTINUE TO FOLLOW.
--- NOTE | 2022-08-22 17:46 | NUR ---
SHIFT SUMMARY; ASSUMED CARE AT 0700. A/A/OX4. D10 INFUSING AT 100ML/HR PER ORDERS. CHEMBG'S DURING SHIFT Q6 AND PRN FOR SYMPTOMS. PO INTAKE INCREASED AND DOING WELL. MEDICATED PER EMAR. PALLATIVE CARE CONSULT TODAY WITH PT. POSSIBLE HOME WITH HOSPICE. VSS, SBA TO BEDSIDE COMMODE WITHOUT DIFFICULTY. LOOSE STOOLS DURING SHIFT CONTINUED, WILL CONTINUE TO MONITOR AND TREAT UNTIL CHANGE OF SHIFT.
[2022-08-22 21:29] LABS: Source, Urine Clean Catch
[2022-08-22 21:31] LABS: Bilirubin, Urine Neg (Neg); Blood, Urine Neg (Neg); Glucose Qualitative, Urine Neg (Neg); Ketones, Urine Neg (Neg); Leukocyte Esterase, Urine Neg (Neg); Nitrite, Urine Neg (Neg); Protein, Urine Neg (Neg); Specific Gravity, Urine 1.005 (1.003-1.022); Urobilinogen, Urine NORM (Normal)
[2022-08-22 21:32] LABS: Appearance, Urine Clear (Clear); Color, Urine Pale Yellow (P-Yellow)
--- NOTE | 2022-08-23 06:10 | NUR ---
MUSEUM PREPARATOR SUMMARY ASSUMED CARE OF THE PT AT 1900. SHE IS ALERT AND ORIENTED X4, PLEASANT AND COOPERATIVE WITH NURSING CARE. PT IS INDEPENDENT TO THE [facility] DUE TO INCREASED URINARY FREQUENCY. SHE REPORTED PAIN WITH URINATION ALONG WITH FREQUENCY, SO A URINALYSIS WAS ORDERED THAT CAME BACK NEGATIVE FOR UTI. INFORMED PT THAT THIS CHANGE IS MOST LIKELY DUE TO HER D10 DRIP. SHE CONTINUES TO HAVE 9/10 PAIN TO THE LEFT HIP, CHRONIC WITH HER CANCER, THAT WAS POORLY MANAGED WITH 5 MG OF OXYCODONE. PT INFORMED THIS RN THAT SHE NORMALLY TAKES 10 MG OF OXYCODONE AT HOME SO A ONE TIME DOSE WAS OBTAINED FROM DR RUIZ FOR THIS MORNING AND PT REPORTS IMPROVEMENT IN HER PAIN. PT GIVEN ONE DOSE OF PO ZOFRAN LAST NOC WITH LITTLE IMPROVEMENT SO PT GIVEN IV PHENERGAN THIS AM PER REQUEST. BP APPEARS TO BE ELEVATED IN RELATION TO PAIN. SHE IS STILL OPEN TO HOSPICE BUT IS REQUESTING TO SPEAK WITH HER BEFORE ARRANGEMENTS ARE MADE. HER CBGS CONTINUE TO BE IN THE LOW 100S, EVEN ON THE D10 DRIP AT 100 ML/HR. PT DOES REPORT IMPROVEMENT IN HER DIARRHEA.
--- NOTE | 2022-08-23 18:06 | NUR ---
SHIFT SUMMARY; ASSUMED CARE AT 0700, A/A/OX4. PLEASANT AND COOPERATIVE WITH CARE. REPOSITIONS SELF NEEDED. UP TO BEDSIDE COMMODE WITH SBA. D10 INFUSING AT 100ML/HR. Q6 CHEMBGS. VSS, NO ACUTE MEDICAL CHANGES, WILL CONTINUE TO MONITOR AND TREAT UNTIL CHANGE OF SHIFT.
[2022-08-24 05:38] LABS: BASOPHILS ABSOLUTE AUTO 0.05 K/mm3 (0.00-0.23); BASOPHILS PERCENT AUTO 1 % (0-2); EOSINOPHILS ABSOLUTE AUTO 0.56 K/mm3 (0.00-0.68); EOSINOPHILS PERCENT AUTO 10 % (0-6); Hematocrit 32.5 % (33.0-51.0); Hemoglobin 10.4 g/dL (11.5-16.0); IMMATURE GRAN ABSOLUTE AUTO 0.14 K/mm3 (0.00-0.10); IMMATURE GRAN PERCENT AUTO 3 % (0-1); LYMPHOCYTES ABSOLUTE AUTO 0.89 K/mm3 (0.84-5.20); LYMPHOCYTES PERCENT AUTO 16 % (21-46); MONOCYTES ABSOLUTE AUTO 1.15 K/mm3 (0.16-1.47); MONOCYTES PERCENT AUTO 21 % (4-13); Mean Corpuscular HGB 27.7 pg (26.0-34.0); Mean Corpuscular Volume 87 fL (80-100); Mean Platelet Volume 9.6 fL (9.1-12.4); NEUTROPHILS ABSOLUTE AUTO 2.79 K/mm3 (1.96-9.15); NEUTROPHILS PERCENT AUTO 50 % (41-73); Platelet Count 246 K/mm3 (150-400); RDW Coefficient Variation 18.5 % (11.7-14.2); Red Blood Cell Count 3.75 M/mm3 (3.80-5.20); White Blood Cell Count 5.58 K/mm3 (4.00-11.30)
[2022-08-24 06:32] LABS: Albumin, Blood 2.5 g/dL (3.4-5.0); Anion Gap 3 mmol/L (6-16); Blood Urea Nitrogen 6 mg/dL (8-24); Bun/Creatinine Ratio 6.6 (12.0-20.0); CO2, Blood 26 mmol/L (21-32); Calcium, Blood 7.7 mg/dL (8.5-10.1); Chloride, Blood 110 mmol/L (98-108); Creatinine, Blood 0.91 mg/dL (0.40-1.00); Glomerular Filtration Rate 67 (60-); Glucose, Blood 114 mg/dL (70-99); Magnesium, Blood 1.3 mg/dL (1.6-2.4); Phosphorus, Blood 2.7 mg/dL (2.5-4.9); Potassium, Blood 4.2 mmol/L (3.5-5.5); Sodium, Blood 139 mmol/L (136-145)
--- NOTE | 2022-08-25 05:56 | NUR ---
SHIFT SUMMARY PT REAMINS A&O X4. PLEASANT AND COOPERATIVE WITH CARE. PT SLEPT WELL THROUGHOUT THE NIGHT. VSS. PT REPORTS 8-9/10 PAIN THROUGHOUT SHIFT. MEDICATED PER EMAR, WELL REPOSITIONING AND WARM BLANKETS, WARMING PAD TO HELP ALLEVIATE PAIN. PT REPORTS NAUSEA W/VOMITTING; MEDICATED PER EMAR. PT UP TO BSC INDEPENDENTLY; VOIDING WELL. PT DID NOT HAVE BM OR ANY EPISODES OF DIARRHEA THIS SHIFT. NO ACUTE CHANGES DURING SHIFT. D5 1/2 NS INFUSING @ 100MLS/HR PER EMAR. CBG STABLE IN 90'S. CALL LIGHT IN REACH, BED IN LOWEST POSITION. PT CALLS APPROPRIATELY FOR NEEDS.
[2022-08-25 09:58] LABS: Albumin, Blood 2.5 g/dL (3.4-5.0); Anion Gap 2 mmol/L (6-16); Blood Urea Nitrogen 5 mg/dL (8-24); CO2, Blood 29 mmol/L (21-32); Chloride, Blood 106 mmol/L (98-108); Creatinine, Blood 0.84 mg/dL (0.40-1.00); Glomerular Filtration Rate 73 (60-); Glucose, Blood 108 mg/dL (70-99); Phosphorus, Blood 3.1 mg/dL (2.5-4.9); Sodium, Blood 137 mmol/L (136-145)
--- NOTE | 2022-08-25 17:09 | NUR ---
MET WITH PT, SHE IS SITTING UP IN BED. SHE IS MORE ALERT AND FEELING BETTER TODAY, PT HAS BEEN AMBULATING IN ROOM AND WORKING WITH PT. SHE REPORTS SHE HAS A VERY NICE VISIT WITH FAMILY OVER THE WEEKEND AND WAS ABLE TO PLAY YATZEE WITH THE KIDS. PT SMILES WHILE TALKING ABOUT THIS. PROVIDED INFORMATION PROMISED ABOUT WITH [facility]. ADVISED THAT THIS PROCESS CAN TAKE 1-2 MONTHS AND THE CLOSEST PROVIDERS ARE IN [place]. SHE VU AND REPORTS THAT THE PLAN RIGHT NOW IS TO MEET WITH HH TOMORROW AND HOPEFULY WITH HER ONCOLGIST ON THURSDAY TO DISCUSS FUTURE CARE/TREATMENTS BEFORE MAKING A FINAL DECISION ABOUT HOSPICE. PT THANKS ME FOR THE VISIT. PALLIATIVE CARE WILL CONTINUE TO FOLLOW AND PROVIDE SUPPORT NEEDED.
--- NOTE | 2022-08-25 18:19 | NUR ---
SHIFT SUMMARY PT A&OX4. VSS. SP02>90% ON RA. TELEMETRY SHOWS SINUS TACH, HR 100'S-140'S W/ AMBULATION. PT C/O OF L HIP PAIN, MEDICATED PER EMAR. HEATING PAD APPLIED. PT AMBULATED W/ PT AROUND THE UNIT TODAY. UP TO BATHROOM TO VOID MULTIPLE TIMES. REPORTS LOOSE BM X2 THIS EVENING. D5 GTT DECREASED THIS SHIFT FROM 100 MLS/HR TO 50 MLS/HR. BLOOD SUGARS SUSTAINED W/ THIS CHANGE: 94, 99. C/O OF NAUSEA/VOMITTING X2, MEDICATED W/ ZOFRAN PER EMAR. PALLIATIVE CARE IN ROOM TODAY. IN ROOM FOR PART OF AFTERNOON. CALL LIGHT IN REACH.
--- NOTE | 2022-08-25 20:13 | NUR ---
UPDATE PT PUSHED CALL LIGHT TO LET THIS RN KNOW THAT SHE WAS FEELING "SHAKY"; PT IS VISIBLY SHAKY. CBG TAKEN; 106. PT DENIES N/V, COOLNESS AND IS NOT DIAPHORETIC. TEMPERATURE TAKEN SHOWS 100.0. PT AGREED TO TAKE TYLENOL. THIS RN WILL ADMINISTER PER EMAR. VS; BP ELEVATED AT 161/86, HR ELEVATED AT 126, RR 17, SPO2 96% ON RA. PT DOES REPORT COUGHING UP "YELLOWISH" SPUTUM THROUGHOUT THE DAY.
--- NOTE | 2022-08-25 20:16 | NUR ---
ASSUMPTION OF CARE NOTE THIS RN ASSUMED CARE OF PT AT 1900. REPORT FROM DARVIN CARO. PT LYING IN BED, WATCHING TV. PT IS SMILING AND INTERACTING WITH THIS RN. PT DENIES SOB, CP OR PRESSURE. PT REPORTS HER PAIN IS "OKAY" AT THIS TIME. DENIES N/V; ALTHOUGH REPORTS HAVING NAUSEA W/EMESIS DURING THE DAY. LUNG SOUNDS CLEAR ALTHOUGH A LITTLE DIMINISHED. PT REPORTS NO CONCERNS OR NEEDS AT THIS TIME. D5 1/2 NS INFUSING AT 50 MLS/HR PER EMAR. CALL LIGHT IN REACH AND BED IN LOWEST POSITION.
--- NOTE | 2022-08-25 21:52 | NUR ---
UPDATE TYLENOL ADMINISTERED; RECHECK SHOWED TEMP OF 98.2. PT IS NO LONGER SHAKING AND HR IS 103. PT STATES SHE IS STARTING TO FEEL BETTER. CALL LIGHT IN REACH AND BED IN LOWEST POSITION.
--- NOTE | 2022-08-26 05:51 | NUR ---
SHIFT SUMMARY PT REMAINS A&O X4. VSS; ALTHOUGH AT BEGINNING OF SHIFT AND PERIODICALLY THROUGOUT PT HR INCREASED TO 120 - 130'S AT REST; UP TO 140-150'S WITH EXERTION. PT DENIES SX OR PALPITATIONS. THROUGHOUT NIGHT HR DECREASED TO WNL, BUT IS STILL INCREASING WITH MOVEMENT. PT HAD TEMP OF 100.0 AND 100.8 AT BEGINNING OF SHIFT; TYLENOL ADMINSTERD. AFTERWARDS, PT AFEBRILE. PT REPORTS NAUSEA W/OUT EMESIS. MEDICATED PER EMAR WITH RELIEF. PT REPORTS PAIN 8-9/10; MEDICATED PER EMAR W/SOME RELIEF. REPOSITIONING, UNINTERRUPTED REST AND HEAT ALSO USED TO MANAGE PAIN. PT RESTED ON AND OFF THROUGHOUT SHIFT. NO BM OR LOOSE STOOLS THIS SHIFT. PT UP TO BSC AND VOIDING WELL. CBG STABLE; 90 - 100'S. D5 1/2 NS INFUSING AT 50 MLS/HR PER EMAR. NO OTHER ACUTE CHANGES THROUGHOUT NIGHT. CALL LIGHT IN REACH AND BED IN LOWEST POSITION.
--- NOTE | 2022-08-26 18:41 | NUR ---
SHIFT SUMMARY NO ACUTE CHANGES THIS SHIFT. PT A&OX4. VSS. RA, SINUS TACH. C/O OF L HIP PAIN, MEDICATED PER EMAR. C/O OF NAUSEA, NO VOMITTING TODAY. MEDICATED PER EMAR X2. PT TRIED TO EAT SMALL FREQUENT SNACKS. D5 GTT TURNED OFF THIS SHIFT. CBG'S: 90, 76. PT UP TO BATHROOM TO VOID MULTIPLE TIMES. PT HAD ONE LOOSE BM. AMBULATED AROUND UNIT THIS AFTERNOON. RESTING IN ROOM. CALL LIGHT IN REACH.
--- NOTE | 2022-08-27 05:49 | NUR ---
SHIFT SUMMARY PT IS A PLEASANT ALERT AND ORIENTED WOMAN. SHE HAS BEEN IND IN THE ROOM AND HAS USED HER CALL LIGHT APPROPRIATELY. SHE SUFFERS FROM CHRONIC BACK AND HIP PAIN DUE TO AN EXTENSIVE MEDICAL HX AND HAD TO BE MEDICATED A FEW TIMES T/O THE NIGHT TO HELP CONTROL PAIN. AT ABOUT 0500 THIS AM THE PT HAD AN EPISODE OF EMESIS AND WAS MEDICATED WITH 4MG IV ZOFRAN. SHE HAS BEEN ABLE TO SLEEP MAJORITY OF THE NIGHT BUT HAS BEEN WOKEN UP FOR Q4 CBG'S. HER BLOOD SUGAR HAS RANGED FROM 76-111, AND THAT IS WITH HER EATING CRACKERS, FRUIT, YOGURT, PEANUT BUTTER, AND OTHER SNACKS TO HELP STABELIZE HER SUGARS. SHE WAS SPOT CHECKED AFER GETTING SICK THIS AM AND HER BLOOD SUGAR WAS 109. THE PT STARTED TO HAVE SOME MIDSTERNAL PRESSURE AFTER GETTING SICK, AND IT HAS SINCE SUBSIDED. THERE WERE NO CHANGES ON TELE OR VITAL SIGNS. PT HAS BEEN SR 80'S MOST OF THE SHIFT AND SP02>90% ON ROOM AIR. HER BED IS IN LOW, CALL LIGHT IS IN REACH, AND I WILL CONTINUE TO MONITOR UNTIL SHIFT REPORT IS GIVEN TO THE ONCOMING SHIFT RN. SEE NOTES FOR ANY UPDATES.
[2022-08-27 06:57] LABS: Albumin, Blood 2.3 g/dL (3.4-5.0); Anion Gap 4 mmol/L (6-16); Blood Urea Nitrogen 8 mg/dL (8-24); Bun/Creatinine Ratio 8.9 (12.0-20.0); CO2, Blood 29 mmol/L (21-32); Calcium, Blood 8.2 mg/dL (8.5-10.1); Chloride, Blood 101 mmol/L (98-108); Glomerular Filtration Rate 68 (60-); Glucose, Blood 88 mg/dL (70-99); Phosphorus, Blood 3.5 mg/dL (2.5-4.9); Potassium, Blood 3.8 mmol/L (3.5-5.5); Sodium, Blood 134 mmol/L (136-145)
[2022-08-27] MEDS ORDERED: BANATROL PLUS1 EAC1 PO (11:31)
[2022-08-27] MEDS ORDERED: VANCOCIN HCL250 MG PO (11:32)
--- NOTE | 2022-08-27 12:43 | NUR ---
ASSUMED CARE OF PT AT 0700 THIS AM. NO ACUTE EVENTS T/O THE MORNING. PT TO BE DISCHARGED HOME W HOME HEALTH. IV AND POWERGLIDE REMOVED TO L ARM, NO COMPLICATIONS NOTED. DISCHARGE TEACHING REVIEWED WITH PT AND HER AT BEDSIDE INCLUDING MEDICATION LIST, FOLLOW UP APPOINTMENTS, AND EDUCATION. PT IS GIVEN WRITTEN ORDERS FOR BLOOD SUGAR MONITOR AND SUPPLIES. PT SENT HOME WITH ALL BELONGINGS. NO OTHER DISCHARGE NEEDS NOTED.
[2022-08-30 23:10] LABS: FREE INSULIN 56 uU/mL (.); TOTAL INSULIN 56 uU/mL (.)
[2022-09-08] MEDS ORDERED: MACRODANTIN50 M1 PO (11:18)
[2022-09-08] MEDS ORDERED: AREDS PO (11:19)
[2022-09-08] MEDS ORDERED: ERGO400 PO (11:21)
== END 2022-08-27 12:47 | disposition home health service (06) | DRG 871 ==
LOC: ER 04:45 → MEDS 08:20 → PCU 08-20 21:51
PROVIDERS: Internal Medicine; Student in an Organized Health Care Education/Training Program; ADMIT Internal Medicine
DX: A41.9 Sepsis, unspecified organism (principal); J18.9 Pneumonia, unspecified organism; N17.9 Acute kidney failure, unspecified; A04.72 Enterocolitis due to Clostridium difficile, not specified as recurrent; E87.1 Hypo-osmolality and hyponatremia; C79.51 Secondary malignant neoplasm of bone; C78.7 Secondary malignant neoplasm of liver and intrahepatic bile duct; D84.9 Immunodeficiency, unspecified; E44.0 Moderate protein-calorie malnutrition; Z66 Do not resuscitate; R73.9 Hyperglycemia, unspecified; T45.1X5A Adverse effect of antineoplastic and immunosuppressive drugs, initial encounter; E16.2 Hypoglycemia, unspecified; I12.9 Hypertensive chronic kidney disease with stage 1 through stage 4 chronic kidney disease, or unspecified chronic kidney disease; N18.32 Chronic kidney disease, stage 3b; E87.70 Fluid overload, unspecified; F10.20 Alcohol dependence, uncomplicated; I89.0 Lymphedema, not elsewhere classified; E83.42 Hypomagnesemia; E86.0 Dehydration; Z88.2 Allergy status to sulfonamides; Z79.899 Other long term (current) drug therapy; Z79.01 Long term (current) use of anticoagulants; Z79.891 Long term (current) use of opiate analgesic; Z90.710 Acquired absence of both cervix and uterus; Z85.3 Personal history of malignant neoplasm of breast; Z92.21 Personal history of antineoplastic chemotherapy; Z92.3 Personal history of irradiation; Z90.13 Acquired absence of bilateral breasts and nipples; Z98.890 Other specified postprocedural states; Z98.1 Arthrodesis status; Z87.440 Personal history of urinary (tract) infections; Z98.82 Breast implant status; Z87.891 Personal history of nicotine dependence; Z68.22 Body mass index [BMI] 22.0-22.9, adult
CPT/HCPCS: 36415; 51701; 70450; 71045; 74183; 80048; 80053; 80069; 81001; 81003; 82530; 82607; 82728; 82746; 82947; 83036; 83525; 83527; 83540; 83550; 83605; 83735; 84100; 84145; 84439; 84443; 84681; 85025; 87040; 87086; 87324; 87507; 93005; 93010; 94760; 96361-59; 96374-59; 96375-59; 97110; 97116; 97162; 97530; 99285-25; A9270; A9579; C1751; J0456; J0696; J1610; J1650; J2405; J2550; J3475; J7030; J7042; J7050; J7131; J7799

== ENCOUNTER → 2022-09-11 | Outpatient (CLI) | payer MEDICARE, OTHER ==
[~2022-09-11] MED LIST changes: +AREDS PO; +BANATROL PLUS1 EAC1 PO; +CRANBERRY500 M1 PO; +ERGO400 PO; +IRON18 MG PO; +MACRODANTIN50 M1 PO; +OLAN2.5 PO; +ONDA4ODT MM; +TIZA4 PO; +VANCOCIN HCL250 MG PO; +VITAMIN D3-ALO1 EACH PO; +[UNRECOGNIZED DRUG - OTHER] PO
[2022-09-11 17:58] LABS: Adenovirus F 40/41 Not Detected (NOT DETECT); Astrovirus Not Detected (NOT DETECT); Campylobacter Sp Not Detected (NOT DETECT); Cyclospora Cayetanensis Not Detected (NOT DETECT); E. Coli O157 Not Detected (NOT DETECT); Entamoeba Histolytica Not Detected (NOT DETECT); Enteroaggregative E. coli-EAEC Not Detected (NOT DETECT); Enteropathogenic E. coli-EPEC Not Detected (NOT DETECT); Enterotoxigenic E. coli-ETEC Not Detected (NOT DETECT); Giardia Lamblia Not Detected (NOT DETECT); Norovirus GI/GII Not Detected (NOT DETECT); Plesiomonas Shigelloides Not Detected (NOT DETECT); Rotavirus A Not Detected (NOT DETECT); Salmonella Sp Not Detected (NOT DETECT); Sapovirus Not Detected (NOT DETECT); Shiga Toxin-prod E. coli-STEC Not Detected (NOT DETECT); Shigella/Enteroin E. coli-EIEC Not Detected (NOT DETECT); Vibrio Cholerae Not Detected (NOT DETECT); Vibrio Sp Not Detected (NOT DETECT); Yersinia Enterocolitica Not Detected (NOT DETECT)
[2022-09-12 11:03] LABS: Cryptosporidium Not Detected (NOT DETECT)
== END | disposition home or self-care (01) ==
LOC: LAB SHORT 06:07
PROVIDERS: Hospitalist
DX: A04.72 Enterocolitis due to Clostridium difficile, not specified as recurrent (principal)
CPT/HCPCS: 87507

== ENCOUNTER 2022-12-08 10:14 | Emergency (ER) | payer MEDICARE, OTHER ==
[~2022-12-08] VITALS: Ht 165.1 cm; Wt 48.5 kg
[~2022-12-08 10:14] MED LIST changes: +LAMICTAL25 M2 PO
[2022-12-08 11:41] LABS: Source, Urine Clean Catch
[2022-12-08 11:44] LABS: Appearance, Urine Clear (Clear); Bilirubin, Urine Neg (Neg); Blood, Urine Neg (Neg); Color, Urine Yellow (P-Yellow); Glucose Qualitative, Urine Neg (Neg); Ketones, Urine Neg (Neg); Leukocyte Esterase, Urine Neg (Neg); Nitrite, Urine Neg (Neg); Protein, Urine Neg (Neg); Specific Gravity, Urine 1.015 (1.003-1.022); Urobilinogen, Urine NORM (Normal)
[2022-12-08 12:15] VITALS: BP 125/74
== END 2022-12-08 12:26 | disposition home or self-care (01) ==
LOC: ER 10:14
PROVIDERS: Physician Assistant
DX: R30.0 Dysuria (principal); I10 Essential (primary) hypertension; Z85.3 Personal history of malignant neoplasm of breast; Z88.2 Allergy status to sulfonamides; Z88.8 Allergy status to other drugs, medicaments and biological substances; Z91.014 Allergy to mammalian meats; Z79.899 Other long term (current) drug therapy
CPT/HCPCS: 81003

== ENCOUNTER 2023-01-08 14:19 | Inpatient (IN) | payer MEDICARE, OTHER ==
[2023-01-08] MEDS ORDERED: [UNRECOGNIZED DRUG - OTHER] IV (15:39)
[2023-01-08] MEDS ORDERED: XGEVA120 MG/1.1 SC ×2 (15:41→15:42)
[2023-01-08] MEDS ORDERED: METO10 PO (15:44)
[2023-01-08 16:34] LABS: Hematocrit 27.2 % (33.0-51.0); Hemoglobin 8.9 g/dL (11.5-16.0); Mean Corpuscular HGB 30.6 pg (26.0-34.0); Mean Corpuscular HGB Conc 32.7 g/dL (31.5-36.5); Mean Corpuscular Volume 94 fL (80-100); Mean Platelet Volume 9.6 fL (9.1-12.4); NRBC ABSOLUTE 0.08 K/mm3 (0.00-0.02); NRBC Auto 0.2 /100 WBC (0.0-0.2); Platelet Count 248 K/mm3 (150-400); RDW Coefficient Variation 18.9 % (11.7-14.2); RDW Standard Deviation 63.8 fL (35.1-46.3); Red Blood Cell Count 2.91 M/mm3 (3.80-5.20); White Blood Cell Count 49.07 K/mm3 (4.00-11.30)
[2023-01-08 16:38] LABS: Albumin, Blood 3.5 g/dL (3.4-5.0); Bilirubin, Total 0.4 mg/dL (0.1-1.0); Bun/Creatinine Ratio 14.7 (12.0-20.0); Calcium, Blood 10.3 mg/dL (8.5-10.1); Creatinine, Blood 1.02 mg/dL (0.40-1.00); Globulin, Blood 3.5 g/dL (2.2-4.0); Potassium, Blood 3.8 mmol/L (3.5-5.5)
[2023-01-08 20:00] LABS: BAND PERCENT MAN 5 % (0-8); BASOPHILS PERCENT MAN 0 % (0-2); EOSINOPHILS PERCENT MAN 0 % (0-6); LYMPHOCYTES ABSOLUTE MAN 1.96 K/mm3 (0.84-5.20); LYMPHOCYTES PERCENT MAN 4 % (21-46); METAMYELOCYTE ABSOLUTE MAN 0.98 K/mm3 (0.00-0.00); METAMYELOCYTE PERCENT MAN 2 % (0-0); MONOCYTES ABSOLUTE MAN 1.96 K/mm3 (0.16-1.47); MONOCYTES PERCENT MAN 4 % (4-13); MYELOCYTE ABSOLUTE MAN 1.47 K/mm3 (0.00-0.00); MYELOCYTE PERCENT MAN 3 % (0-0); NEUTROPHILS ABSOLUTE MAN 42.69 K/mm3 (1.96-9.15); SEG NEUTROPHILS PERCENT MAN 82 % (41-73); TOTAL CELLS COUNTED 100
--- NOTE | 2023-01-08 20:34 | NUR ---
PT CHART REVIEWED FOR ADMIT
[2023-01-08] MEDS ORDERED: FAMO20 PO (20:49)
[2023-01-08] MEDS ORDERED: OLAN5 PO (20:54)
[2023-01-08 21:46] VITALS: BP 144/77
[2023-01-09 02:28] VITALS: BP 144/84
--- NOTE | 2023-01-09 04:37 | NUR ---
PATIENT ARRIVED ON UNIT AT 21:50 FROM ED. C/O FEELING DIZZY, LIGHT HEADED, UNABLE TO BARE WEIGHT WITHOUT LOSING BALANCE. C/O INTERMITTANT PAIN TO LEFT HIP, STATES IT IS R/T SPINAL PRESSURE/RADIATING PAIN FROM CANCER. RECEIVES PRN OXYCODONE FOR PAIN MANAGEMENT. PRN ZOFRAN FOR NAUSEA, R/T VERTIGO. 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 STATES RUE EDEMA IS CHRONIC SINCE CHEMO. LEFT FOOT IS NUMB. USES BED BOBBY. PER [employer], SR 80'S. MEDIPORT TO RIGHT UPPER CHEST, INFUSING LR@125. APPEARES TO BE RESTING IN BED AT THIS TIME IN NO ACUTE DISTRESS. CALL LIGHT WITHIN REACH, BED LOW.
[2023-01-09 05:12] LABS: Hematocrit 27.1 % (33.0-51.0); Hemoglobin 8.7 g/dL (11.5-16.0); Mean Corpuscular HGB 30.4 pg (26.0-34.0); Mean Corpuscular HGB Conc 32.1 g/dL (31.5-36.5); Mean Corpuscular Volume 95 fL (80-100); NRBC ABSOLUTE 0.13 K/mm3 (0.00-0.02); NRBC Auto 0.3 /100 WBC (0.0-0.2); Platelet Count 195 K/mm3 (150-400); RDW Coefficient Variation 19.2 % (11.7-14.2); RDW Standard Deviation 64.6 fL (35.1-46.3); Red Blood Cell Count 2.86 M/mm3 (3.80-5.20); White Blood Cell Count 39.67 K/mm3 (4.00-11.30)
[2023-01-09 05:42] LABS: Bun/Creatinine Ratio 13.5 (12.0-20.0); Calcium, Blood 9.4 mg/dL (8.5-10.1); Creatinine, Blood 0.82 mg/dL (0.40-1.00); Magnesium, Blood 1.3 mg/dL (1.6-2.4); Potassium, Blood 3.6 mmol/L (3.5-5.5)
[2023-01-09 07:19] VITALS: BP 125/66
[2023-01-09 15:27] VITALS: BP 129/66
--- NOTE | 2023-01-09 16:53 | NUR ---
Brief visit this afternoon. Pt resting in bed with her eyes closed. Pt wakes to gentle verbal stimuli. Pt requests this RN return when she is more awake. Pt appears comfortable with S/S of distress at this time. Spoke with Primary RN Rylee and discussed case. Pt reported to Rylee she is getting more ill and is considering talking with oncologist regarding the chemo treatments. Plan: Discuss completing POLST with Pt and possibly goals of care. Palliative Care will remain available
--- NOTE | 2023-01-09 17:13 | NUR ---
SHIFT SUMMARY PT RESTING QUIETLY AT START OF SHIFT. PT REPORTED BEING WOKE OFTEN AND NOT GETTING MUCH SLEEP. PT ADMITTED FOR VERTIGO AND STILL C/O DIZZINESS. ABLE TO WORK SOME WITH THERAPY, BUT MINIMAL D/T WEAKNESS, NAUSEA, AND DIZZINESS. MEDICATED PER EMAR FOR PAIN TO L HIP/BACK WELL NAUSEA. PT TAKEN DOWN FOR MRI. DR VILLA LATER IN TO SEE PT AND DISCUSS RESULTS; MRI NOT SHOWING CANCER IN BRAIN, WHICH MAY HAVE BEEN CAUSE OF VERTIGO. DR VILLA TO ORDER STEROIDS TODAY. PT TO REMAIN ANOTHER NIGHT AND RE-EVAL IN AM. PT'S FAMILY HERE A COUPLE OF TIMES TODAY. PT REQUESTING [facility] SOFT DIET; CHANGED PER REQUEST. PT DENIED FURTHER NEEDS AT THIS TIME. PT AND DAUGHTER EDU R/T OXYGEN USE AND ANY SOURCES OF IGNITION; BOTH VERBALIZED UNDERSTANDING. NEITHER ARE SMOKERS. CALL LT IN REACH.
[2023-01-09 19:28] VITALS: BP 121/64
[2023-01-10 02:54] VITALS: BP 137/71
--- NOTE | 2023-01-10 04:51 | NUR ---
SHIFT SUMMARY NO ACUTE CHANGES NOTED DURING SHIFT. PT ALERT AND ORIENTED,CALLS APPROPRIATELY. PT REMAINS ON RA, BR D/T VERTIGO. PT MEDICATED WITH PRN PAIN AND NAUSEA MEDICATIONS PER EMAR, EFFECTIVE. SWELLING TO R ARM, MEPILEX PLACED ON ELBOW TO RELIEVE PRESSURE AT REQUEST OF PT. WILL CONTINUE TO MONITOR. CALL LIGHT WITHIN REACH.
[2023-01-10 07:31] VITALS: BP 138/75
--- NOTE | 2023-01-10 10:26 | NUR ---
RN NOTE PT TRANSFERED TO COMFORT CARE. IVF DISCONTINUED, MEDIPORT HEPARIN LOCKED. TELEMETRY REMOVED. [place] UP [place] [facility] [place] VERY WEAK AND SHAKEY, 2 PERSON ASSIST WITH GAIT BELT. PT ABLE TO VOID. SHE WOULD LIKE A ROSE CATHETER PLACED. HEAT PAD ON LEGS AND HIP.
--- NOTE | 2023-01-10 15:29 | NUR ---
SHIFT SUMMARY MS CRUZ TRANSITIONED TO COMFORT CARE TODAY. SHE HAS BILATERAL LEG PAIN AND NUMBNESS BELOW HER KNEES THAT HAS IMPROVED SINCE SHE TOOK MED THIS AM. HER LEFT HIP PAIN IS MOST RECENTLY DOWN TO 5/10 WHICH SHE IS HAPPY WITH AFTER MEDICATIONS, REPOSITIONING, SITTING UP THE RECLINER FOR A WHILE AND HEAT PAD. HER NAUSEA IS STILL THERE BUT MANAGED ON SCHEDULED REGLAN AND PRN ZOFRAN. SHE WAS EDUCATED AND VERBALISED UNDERSTANDING OF WHAT PAIN MEDICATIONS ARE AVAILABLE TO HER. SHE IS CONCERNED ABOUT DIZZYNESS AND PREFEING TO STAY AT LOW DOSES AT THE MOMENT. SHE DOES NOT WANT TO GET UP FREQUENTLY TO USE THE BEDSIDE COMMODE. SHE WAS INFORMED THAT SHE CAN HAVE A ROSE PLACED IF SHE WANTS BUT HAS DECIDED THAT THE PUREWICK IS A GOOD OPTION FOR HER AT THE MOMENT. IV FLUIDS DISCONTINUED, MEDIPORT LINE HEPARINSED AND LEFT ACCESSED FOR ZOFRAN. SCDS DISCONTINUED PER PT PREFERENCE. PT VOICED UNDERSTANDING OF EDUCATION RE IGNITION SOURCES AND RISK FOR INJURY WHEN OXYGEN IS IN USE AND SHE DENIES SMOKING. HOURLY ROUNDING INCLUDING CHECKING FOR IGNITION RISK. BED LOW, CALL LIGHT IN REACH.
--- NOTE | 2023-01-11 03:47 | NUR ---
SHIFT ASSESSMENT PT A/O VERY PLEASENT CALLS APPROPIATLY. CHRONIC BACK AND HIP PAIN COVERED BY CONSTANT PAIN MANAGMENT, PT RENETTA MEDICATION WELL AND IS NOT OVER SEDATED. ONE PERSON ASSIST TO BSC WITH MEDIUM BM. DISCUSSED PT ADVOCACY WITH PT AND HOW TO POSSIBLY COMMUNICATE TO FAMILY ABOUT RESENT COMFORT CARE ORDER. PT SEEMS ACCEPTING OF HER DECISION TO BUCKLE ASSEMBLER TO PALLITIVE CARE.
[2023-01-11 07:34] VITALS: BP 113/71
--- NOTE | 2023-01-11 10:50 | NUR ---
RN NOTE MS CRUZ IS RESTING WITH HER EYES CLOSED NOW, LOOKS COMFORTABLE AFTER INCREASED OXY DOSE OF 10MG. SHE SAID NAUSEA HAS YAMILE CONTROLLED THIS MORNING. SHE HAS NUMBNESS TO HER LEGS AND REQUIRES 1-2 STAFF ASSISTANCE TO TRANSFER TO BSC. SHE VERBALISED UNDERSTANDING OF EDUCATION RE IGNITION SOURCES AND RISK OF INJURY WHEN OXYGEN IN USE. SHE SAID SHE DOES NOT SMOKE. CHANGES IN IGNITION RISK ASSESSED ON HOURLY ROUNDS. BED LOW, CALL LIGHT IN REACH.
--- NOTE | 2023-01-11 18:36 | NUR ---
SHIFT SUMMARY MS CRUZ HAS NOT REQUIRED ANY ZOFRAN IV THIS SHIFT, HAS DENIED NAUSEA. TOOK PRE MEAL REGALN DOSES. STILL C/O DIZZYNESS WHEN SHE STANDS/SITS UP. LEFT LEG NUMBNESS AND UNSTEADY ON HER FEET, REQUIRING 2 PEOPLE AND GAIT BELT TO TRANSFER TO THE RECLINER. PT SAID HER PAIN HAS BEEN WELL CONTROLLED ON PAIN MEDICATIONS. GOOD APPETITE. NOW BACK IN BED, BED LOW, CALL LIGHT IN REACH.
--- NOTE | 2023-01-12 04:45 | NUR ---
SHIFT ASSESSMENT PT CALM AND QUIET TODAY, SEEMS TO HAVE BEEN RENETTA PAIN A LOT BETTER, ONLY HAS ASKED FOR HALF THE AMOUNT PREVIOUS. CALLS APPROPRIATELY DOES NOT EXPECT TO BE HEADING HOME ANYTIME SOON. CONT TO MONITOR
--- NOTE | 2023-01-12 08:00 | NUR ---
PT A/O X3, DENIES SMOKING. EDUCATED ON FIRE SAFETY. DENIES ANY INFLAMATORY ITEMS IN ROOM.
--- NOTE | 2023-01-12 13:52 | NUR ---
Pt wanted to meet and review her options of care. Pt did not have any past knowledge of hospice. We reviewed how hospice will care for patient and family. Review of available agencies. Review of roles of nursing, chaplian and social work specialist. They will need caregiver help and advised the home child care provider can give resources and idea of cost. Pt states she no longer wants to discuss possible care options and a plan. came in and he is very frain in a wheechair and on oxygen. He had many questions review of equiment and needs. stepped out with daughter and discussed how frail both parents are. looks like he also needs hospice. discussed ways to get him to participate in his care. Will continue to follow.
--- NOTE | 2023-01-12 18:20 | NUR ---
HAD SOME DISCUSSIION WITH PT TODAY. SHE IS ON COMFORT CARE. SHE STATES HAS HAD CANCER PAIN 2-3 YEARS AND BEEN DEALING IN 4-6 PAIN LEVELS FOR LONG TIME. STATES PAIN COVERAGE HAS BEEN PRETTY GOOD. NO NEW CONCERNS. WILL CONTINUE TO MONITOR. FAMILY IN TO VISIT TODAY. BED IN LOW POSITION, CALL LITE IN REACH, CALLS APROP
--- NOTE | 2023-01-13 05:02 | NUR ---
SHIFT SUMMARY A/O PT NO CHANGE IN GENERAL CONDITION TREATED OTC FOR PAIN, STARTING MSCONTIN SEEMED TO HELP. LESS NAUSEA TODAY, PT LOOKING FORWARD TO LEAVING HOSPITAL SOON.
--- NOTE | 2023-01-13 13:11 | NUR ---
Spiritual care visit conducted. Patient is lying in bed and alert. She tells me about the downward progression her disease has taken since our last conversation (about 6 mos ago according to patient). As we discuss what it is like to be her and what her thoughts and emotions have been and are currently, the patient is very tearful at times. She shares personl feeling and fears associated with going home on hospice. We explore the beautiful aspects of this season and of living with a high sense of value for each person, each breath and each moment she gets to have. We discuss and dying, her spiritual beliefs and the struggle her is having both physically (COPD and heart issues) and emotionally (not coping well). I listen empathically, normalize her experience and provide encouragement, a calming presence and gentle psychologist counseling. Patient responded showed signs of being comforted and uplifted. I will continue to remain available to pateint and family.
--- NOTE | 2023-01-13 14:42 | NUR ---
pt seen a few times today. Seen in AM review of discharge. Updated dr squires pt pain escalting. pt reviewed with physician resistant to some of the narcotics so she can be alert when her family comes to visit. We had a talk about getting her some help. Will speak with the social media editor on getting him some care he may be hospice care also. Pt struggling with thinking about things. we reviewed what she used to do before to keep her busy and she do some craft videos. Gave her some art theapy. spoke with her daughter about our visit and gave her some strategies to gove her mother a break form her stress. We also reviewed strategies of getting her father to get care.
[2023-01-13 15:27] VITALS: BP 133/76
--- NOTE | 2023-01-13 19:16 | NUR ---
SHIFT SUMMARY PATIENT WITH DECREASING VERITGO ON MEDICATION TODAY AND PAIN CONTROLLED PER EMAR, NEW ADDED MED TORADOL IV EFFECTIVE WITH NARCOTICS PER PATIENT REPORT. PATIENT AOX4 COOPERATIVE WITH CARE, BED IN LOW POSTITION. CALL LIGHT IN REACH. PATIENT CALLS APPROPRIATELY.
--- NOTE | 2023-01-14 05:16 | NUR ---
SHIFT SUMMARY PT SLEPT WELL T/O THE NIGHT. MEDICATED FOR PAIN REGULARLY WITH PRN MEDICATION. PT ABLE TO MOVE SELF IN BED T/O THE NIGHT. PURE WICK REMAINS IN PLACE TO INCREASE COMFORT FOR PT. NO ACUTE EVENTS T/O THE NIGHT. THE PATIENT IS CURRENTLY SLEEPING, IN NO DISTRESS, CALL LIGHT IN REACH
[2023-01-14 07:30] VITALS: BP 143/84
--- NOTE | 2023-01-14 15:48 | NUR ---
SHIFT SUMMARY PATIENT WITH PAIN AND NAUSEA INTERMITTENT THROUGH SHIFT, RELIEVED BY MEDICATION PER EMAR. ACTIVE LISTENING PROVIDED, HEATING PAD. PATIENT EXPRESSES CONCERN ABOUT DETAILS REVOLVING GOING HOME. STATES SHE DOES NOT WANT ANY MORE MS CONTIN FOR THE MORNING, ONLY AT NIGHT IT MADE HER SLEEP FOR SEVERAL HOURS TODAY. FIRE SAFETY EDUCATION PROVIDED. BED IN LOW POSITION, CALL LIGHT IN REACH. PATIENT CALLS APPROPRIATELY.
--- NOTE | 2023-01-14 18:24 | NUR ---
Pt resting well moving more much more comfortable. updated dsughter on plan of care. is very anxious. Theraputic time with pt. Reminising about her life and reassuring her. will follow upwith getting her for his care needs.
[2023-01-14] MEDS ORDERED: Acetaminophen650 M1 PO (18:45)
[2023-01-14] MEDS ORDERED: DEXA4 PO (18:45)
[2023-01-14] MEDS ORDERED: SENNA LAXATIVE8.6 MG PO (18:46)
[2023-01-14] MEDS ORDERED: MECL25 PO (18:46)
[2023-01-14] MEDS ORDERED: ONDA4 PO (18:46)
[2023-01-14] MEDS ORDERED: MORP15ER PO (18:47)
[2023-01-14] MEDS ORDERED: MORP20L PO (18:47)
[2023-01-15 07:16] VITALS: BP 144/77
--- NOTE | 2023-01-15 08:00 | NUR ---
PT PLEASNT COOP A/O X3, STATS GOING HOME TODAY. FAMILY/FRIEND TO COME IN AND MIXING PLACE SUPERVISOR RX TO TAKE TO [facility]. AGREED. PAIN CONTINUES FROM CANCER. MED PER EMAR. EXPECT TO PREMEDICATE FOR TRIP HOME AT 11. PT UNDERSTANDS. PT IS ON COMFORT CARE. NO NEW CONCERNS NOTED. BED INL OW POSITION, CALL LITE IN REACH, CALLS APPROP
--- NOTE | 2023-01-15 10:22 | NUR ---
MEDIPORT DEACCESSED, FLUSHED WITH 20ML NORMAL SALINE AND 500 UNITS/5ML HEPARIN. WOO NEEDLE DEACCESSED W/O DIFFICULTY AND PT TOLERATED WELL.
--- NOTE | 2023-01-15 11:26 | NUR ---
PT PREMEDICATED TO GOING HOME. MEDIPORT D/C PER JASBIR RN. NO TELE. DISCHARGE REVIEWED WITH PT. VERBALIZED UDERSTANDING MEDS AND COMFORT CARE ORDERS. PT WHEELED TO DOOR BY TRANSPORT. [id number]
== END 2023-01-15 11:40 | disposition home health service (06) | DRG 683 ==
LOC: ER 14:19 → MEDS 14:20 → ENPENDDIS 01-14 09:13 → MEDS 01-15 11:40
PROVIDERS: Emergency Medicine; Nurse Practitioner Acute Care; ADMIT Internal Medicine
DX: N17.9 Acute kidney failure, unspecified (principal); C78.7 Secondary malignant neoplasm of liver and intrahepatic bile duct; C79.51 Secondary malignant neoplasm of bone; C50.919 Malignant neoplasm of unspecified site of unspecified female breast; G89.29 Other chronic pain; M25.559 Pain in unspecified hip; Z51.5 Encounter for palliative care; Z66 Do not resuscitate; I10 Essential (primary) hypertension; R26.2 Difficulty in walking, not elsewhere classified; D50.9 Iron deficiency anemia, unspecified; E86.0 Dehydration; Z88.2 Allergy status to sulfonamides; Z88.1 Allergy status to other antibiotic agents; Z91.014 Allergy to mammalian meats; Z79.891 Long term (current) use of opiate analgesic; Z79.899 Other long term (current) drug therapy; Z79.2 Long term (current) use of antibiotics; Z90.710 Acquired absence of both cervix and uterus; Z87.81 Personal history of (healed) traumatic fracture; Z90.89 Acquired absence of other organs; Z98.890 Other specified postprocedural states; Z86.19 Personal history of other infectious and parasitic diseases; Z79.01 Long term (current) use of anticoagulants; Z90.13 Acquired absence of bilateral breasts and nipples; Z98.82 Breast implant status; Z98.1 Arthrodesis status
CPT/HCPCS: 70450; 70551; 80048; 80053; 83735; 85025; 85027; 93005; 93010; 96361; 96374; 96375; 96376; 97112; 97162; 99285-25; A9270; G0378; J1642; J1885; J2405; J3360; J3475; J7030; J7120